=== PATIENT | female | born 1995 | race Two or more races ===

== ENCOUNTER 2017-10-07 05:00 | Observation (INO) | payer MEDICAID ==
[~2017-10-07] VITALS: Ht 170.2 cm; Wt 87.1 kg
[2017-10-07] MEDS ORDERED: LACTATED RINGER'S 1,000 ML IV ONE (06:00)
[2017-10-07] MEDS: LACTATED RINGER'S 1,000 ML IV SCH ×2 (06:42→12:06)
[2017-10-07 06:54] LABS: Basophils # (auto) 0 uL; Basophils % (auto) 0.4 % (0.0-2.0); Eosinophils # (auto) 0.2 uL; Eosinophils % (auto) 1.4 % (0.0-7.0); Hematocrit 43.9 % (36.0-46.0); Lymphocytes % (auto) 27.1 % (10.0-50.0); Mean Corpuscular Hemoglobin 33.4 pg (28.0-32.0); Monocytes # (auto) 0.6 uL; Monocytes % (auto) 5.3 % (0.0-12.0); Neutrophils # (auto) 7.2 uL; Neutrophils % (auto) 65.8 % (37.0-80.0); Nucleated Red Blood Cells % 0.1 %; Platelet Count (auto) 248 10^3/uL (140-450); Red Blood Cells 4.48 10^6/uL (4.0-5.20); Red Cell Distribution Width 14.1 % (11.8-14.3); White Blood Cell 10.9 10^3/uL (4.4-10.8)
[2017-10-07] MEDS ORDERED: D5W/LACTATED RINGERS 1,000 ML IV SCH (06:59)
[2017-10-07 07:00] LABS: Urine Bacteria NONE SEEN /hpf (None Seen); Urine Blood Negative /uL (Negative); Urine Specific Gravity 1.007 (1.001-1.035); Urine WBC 1 /hpf (0 - 5)
[2017-10-07] MEDS ORDERED: hydrALAZINE HCL 20 MG/ML VL IV PRN (07:00)
[2017-10-07] MEDS ORDERED: BETAMETHASONE ACET (6MG/ML) 5ML VIAL IM ONE (07:00)
[2017-10-07 07:09] LABS: INR 0.83 (0.9-1.15)
[2017-10-07 07:39] LABS: Albumin 2.8 g/dL (3.4-5.0); BUN/Creatinine Ratio 15.2; Bilirubin, Total 0.2 mg/dL (0.2-1.0); Calcium 8.3 mg/dL (8.5-10.1); Total Protein 7.3 g/dL (6.4-8.2); Uric Acid 5.4 mg/dL (2.6-6.0)
[2017-10-07] MEDS ORDERED: LABETALOL HCL 200 MG TAB PO SCH (08:45)
[2017-10-07] MEDS ORDERED: SODIUM CHLORIDE 0.9% 1,000 ML IV SCH (16:16)
[2017-10-07] MEDS ORDERED: MAGNESIUM SULFATE 40MG/ML 1,000 ML IV SCH (16:16)
[2017-10-07] MEDS ORDERED: MAGNESIUM SULFATE 100 ML IV SCH (16:30)
== END 2017-10-07 19:16 | disposition short-term general hospital (02) | DRG 566 ==
LOC: LDRP 05:00
PROVIDERS: ADMIT Obstetrics & Gynecology; ATTEND Obstetrics & Gynecology
DX: O36.8131 Decreased fetal movements, third trimester, fetus 1 (principal); O26.893 Other specified pregnancy related conditions, third trimester; M79.604 Pain in right leg; R10.30 Lower abdominal pain, unspecified; R51 Headache; R42 Dizziness and giddiness; M79.605 Pain in left leg; Z3A.30 30 weeks gestation of pregnancy
CPT/HCPCS: 36415; 59025; 76805; 76818; 80053; 81001; 81002; 83735; 84550; 85025; 85362; 85379; 85610; 85730; 94760; 96361; 96365; 96366; 96372; 96375; G0378; J0360; J0702; J3475; 96374

== ENCOUNTER 2019-03-03 12:47 | Emergency (ER) | payer MEDICAID ==
[~2019-03-03] VITALS: Ht 170.2 cm; Wt 80.7 kg
[2019-03-03 13:00] VITALS: BP 101/66
== END 2019-03-03 16:06 | disposition home or self-care (01) ==
LOC: ER 12:51
DX: S93.402A Sprain of unspecified ligament of left ankle, initial encounter (principal); X50.1XXA Overexertion from prolonged static or awkward postures, initial encounter; Y93.89 Activity, other specified; Y99.8 Other external cause status; Y92.89 Other specified places as the place of occurrence of the external cause
CPT/HCPCS: 73610

== ENCOUNTER 2025-01-27 08:02 | Emergency (ER) | payer MEDICAID ==
[~2025-01-27] VITALS: Ht 170.2 cm; Wt 80.1 kg
[2025-01-27] MEDS: SODIUM CHLORIDE 0.9% 1,000 ML IV ONE (09:10)
[2025-01-27] MEDS: METOCLOPRAMIDE HCL 5MG/ml INJ 2ml VIAL IV ONE (09:10)
[2025-01-27] MEDS: ACETAMINOPHEN 325 MG TAB PO ONE (09:10)
--- NOTE | 2025-01-27 09:19 | ED.PDOC ---
History of Present Illness HPI Comments 29-year-old female presents to the ER with the chief complaint of N/V. Reports that she has been having palpitations associated with headaches, chills, N/V, foul urine smell for the past two weeks but has been worsening throughout the past week. Patient is currently requesting for a CT scan of the head and assumes that she has fluid in the skull. Denies any trauma to the head. Denies any other symptoms at this time. Denies fever, /D, SOB, CP. No other associated symptoms, modifiers, recent injuries or sick contacts present at this time. Chief Complaint: Nausea/Vomiting Time Seen by MD: 09:10 Primary Care Provider: NONE Reviewed Notes: Nurses Notes, Medications, Allergies Allergies: Coded Allergies: Jed Flavor (Verified Allergy, Intermediate, hives, 10/07/17) Information Source: Patient Mode of Arrival: Ambulatory Severity: Moderate Timing: Weeks Duration: Since onset Prehospital treatment: None Past Medical History PAST MEDICAL HISTORY: Denies Surgical History: Denies all surgeries RAPID OUTSOLE STITCHER History: Denies all RAPID OUTSOLE STITCHER Hx Family History Family History: Reviewed,noncontributory to illness, Family hx of DM Social History Smoker: Non-Smoker Alcohol: Denies ETOH Use Drugs: Denies Drug Use Lives In: Home Constitutional: reports: chills; denies: diaphoresis, fatigue, fever, malaise, sweats, weakness, others EENTM: denies: blurred vision, double vision, ear bleeding, ear discharge, ear drainage, ear pain, ear ringing, eye pain, eye redness, hearing loss, mouth pain, mouth swelling, nasal discharge, nose bleeding, nose congestion, nose pain, photophobia, tearing, throat pain, throat swelling, voice changes, others Respiratory: denies: cough, hemoptysis, orthopnea, SOB at rest, shortness of breath, SOB with excertion, stridor, wheezing, others Cardiovascular: reports: palpitations; denies: chest pain, dizzy spells, diaphoresis, Dyspnea on exertion, edema, irregular heart beat, left arm pain, lightheadedness, PND, syncope, others Gastrointestinal: reports: nausea, vomiting; denies: abdomen distended, abdominal pain, blood streaked bowels, constipated, diarrhea, dysphagia, difficulty swallowing, hematemesis, melena, poor appetite, poor fluid intake, rectal bleeding, rectal pain, others Genitourinary: reports: others (Foul urine smell); denies: abnormal vagina bleeding, burning, dyspareunia, dysuria, flank pain, frequency, hematuria, incontinence, pain, , vagina discharge, urgency Neurological: reports: headache; denies: dizziness, fainting, left sided numbness, left sided weakness, numbness, paresthesia, pre-existing deficit, right sided numbness, right sided weakness, seizure, speech problems, tingling, tremors, weakness, others Musculoskeletal: denies: back pain, gout, joint pain, joint swelling, muscle pain, muscle stiffness, neck pain, others Integumetry: denies: bruises, change in color, change in hair/nails, dryness, laceration, lesions, lumps, rash, wounds, others Allergic/Immunocompromised: denies: Difficulty Healing, Frequent Infections, Hives, Itching, others Hematologic/Lymphatic: denies: anemia, blood clots, easy bleeding, easy bruising, swollen glands, others Endocrine: denies: excessive hunger, excessive sweating, excessive thirst, excessive urination, flushing, intolerance to cold, intolerance to heat, unexplained weight gain, unexplained weight loss, others Psychiatric: denies: anxiety, bipolar disorder, depression, hopeless, panic disorder, schizophrenia, sleepless, suicidal, others All Other Systems: Reviewed and Negative Physical Exam Exam Comments Appears uncomfortable General Appearance: No Apparent Distress, Normal HEENT: Normal ENT Inspection, Pharynx Normal, TMs Normal Neck: Full Range of Motion, Non-Tender, Normal, Normal Inspection Respiratory: Chest Non-Tender, Lungs Clear, No Accessory Muscle Use, No Respiratory Distress, Normal Breath Sounds Cardiovascular: No Edema, No JVD, No Murmur, No Gallop, Normal Peripheral Pulses, Regular Rate/Rhythm Breast Exam: Deferred Gastrointestinal: No Organomegaly, Non Tender, No Pulsatile Mass, Normal Bowel Sounds, Soft Genitalia: Deferred Pelvic: Deferred Rectal: Deferred Extremities: No calf tenderness, Normal capillary refill, Normal inspection, Normal range of motion, Non-tender, No pedal edema Musculoskeletal : Apperance: Normal Neurologic: Alert, wagon winder II-XII nml as Tested, No Motor Deficits, Normal Affect, Normal Mood, No Sensory Deficits Cerebellar Function: Normal Reflexes: Normal Skin: Dry, Normal Color, Warm Lymphatic: No Adenopathy Was a procedure done? Was a procedure done?: No Differential Dx Considerations may include: ACS, CVA, viral syndrome, electrolyte abnormality, infectious etiology X-Ray, Labs, Meds, VS Vital Signs Date Time Temp Pulse Resp B/P (MAP) Pulse Ox O2 Delivery O2 Flow Rate FiO2 01/27/25 11:04 98.4 83 16 124/98 (107) 100 98.4 01/27/25 08:35 98.0 96 18 121/86 (98) 100 98.0 01/27/25 08:10 97.8 94 16 142/91 97 97.8 Lab Test 01/27/25 09:33 01/27/25 08:58 Range/Units White Blood Count 9.0 4.4-10.8 10^3/uL Red Blood Count 4.85 4.0-5.20 10^6/uL Hemoglobin 11.9 L 12.2-16.2 g/dL Hematocrit 38.2 36.0-46.0 % Mean Corpuscular Volume 78.8 L 80.0-100.0 fL Mean Corpuscular Hemoglobin 24.6 L 28.0-32.0 pg Mean Corpuscular Hemoglobin Concent 31.3 L 32.0-36.0 g/dL Red Cell Distribution Width 15.2 H 11.8-14.3 % Platelet Count 369 140-450 10^3/uL Mean Platelet Volume 7.7 6.9-10.8 fL Neutrophils (%) (Auto) 84.1 H 37.0-80.0 % Lymphocytes (%) (Auto) 11.0 10.0-50.0 % Monocytes (%) (Auto) 3.9 0.0-12.0 % Eosinophils (%) (Auto) 0.7 0.0-7.0 % Basophils (%) (Auto) 0.3 0.0-2.0 % Neutrophils # (Auto) 7.6 1.6-8.6 10 ^3/uL Lymphocytes # (Auto) 1.0 0.4-5.4 10 ^3/uL Monocytes # (Auto) 0.4 0-1.3 10 ^3/uL Eosinophils # (Auto) 0.1 0-0.8 10 ^3/uL Basophils # (Auto) 0 0-0.2 10 ^3/uL Nucleated Red Blood Cells 0.1 % Sodium Level 142 136-145 mmol/L Potassium Level 3.7 3.5-5.1 mmol/L Chloride Level 105 98-107 mmol/L Carbon Dioxide Level 27 20-31 mmol/L Anion Gap 10 5-15 Blood Urea Nitrogen 6 L 9-23 mg/dL Creatinine 0.76 0.550-1.02 mg/dL Glomerular Filtration Rate Calc 109 >90 mL/min BUN/Creatinine Ratio 7.9 L 10.0-20.0 Serum Glucose 102 74-106 mg/dL Calcium Level 10.1 8.7-10.4 mg/dL Urine Color Colorless Yellow Urine Clarity Clear Clear Urine pH 6.0 5.0-9.0 Urine Specific [place] 1.008 1.001-1.035 Urine Protein Negative Negative Urine Ketones 1+ H Negative Urine Blood Negative Negative /uL Urine Nitrite Negative Negative Urine Bilirubin Negative Negative Urine Urobilinogen Normal Negative mg/dL Urine Leukocyte Esterase Negative Negative /uL Urine RBC 1 0 - 4 /hpf Urine Microscopic WBC 1 0-5 /HPF Urine Squamous Epithelial Cells Few <5 /hpf Urine Bacteria Few H None Seen /hpf Urine Yeast (Budding) Occasional None Seen /hpf Urine Glucose Normal Normal mg/dL Time of 1ST Reevaluation: 09:40 Reevaluation 1ST: Unchanged Patient Education/Counseling: Diagnosis, Treatment, Prognosis Family Education/Counseling: No Family Present SEPSIS Sepsis Screen Date sepsis recognized/suspect: Jan 27, 2025 Time Sepsis recognized/suspect: 08 Recent Procedure: No On Antibiotic Therapy: No Respiratory Rate >20: No Heart Rate >90: No Temp<36 C (96.8 F) or >38.3 C: No SBP <90 or MAP <65 mmHG: No New Acute Mental Status Change: No Is the patient on CPAP, BIPAP,: No Physician Orders Head Without Contrast (01/27/25 10:55) Vital Signs Date Time Temp Pulse Resp B/P (MAP) Pulse Ox O2 Delivery O2 Flow Rate FiO2 01/27/25 11:04 98.4 83 16 124/98 (107) 100 98.4 01/27/25 08:35 98.0 96 18 121/86 (98) 100 98.0 01/27/25 08:10 97.8 94 16 142/91 97 97.8 Laboratory Tests Test 01/27/25 09:33 White Blood Count 9.0 10^3/uL (4.4-10.8) Departure 1 Departure Time of Disposition: 12:33 (Patient's workup is benign. Patient likely with a migraine. We will discharge patient home with outpatient follow up) Impression: Primary Impression: Migraine Disposition: 01 HOME / SELF CARE / HOMELESS Condition: Stable Additional Instructions: Your CT scan was normal your labs were normal. You did not have any lab abnormalities that would suggest diabetes. You likely had a migraine. You received medications in the ER. You can take tylenol and motrin as needed for pain. You should stay well rested and well hydrated. It is important to follow up with your regular doctor within one week. If your symptoms worsen or you have any other concerns then please return to the ER. Discharged With: Self Critical Care Note Critical Care Time?: No Stability Stability form required: No I personally scribed for CIELO PATHAK MD ([email or web address]) on 01/27/25 at 09:19. Electronically submitted by González Russo ([email or web address]). CIELO PATHAK MD Jan 27, 2025 09:19
[2025-01-27 09:28] LABS: Urine Budding Yeast OCCASIONAL /hpf (None Seen); Urine Protein, UAD Negative (Negative)
[2025-01-27 09:44] LABS: Hematocrit 38.2 % (36.0-46.0); Hemoglobin 11.9 g/dL (12.2-16.2); Mean Corpuscular Hemoglobin 24.6 pg (28.0-32.0); Mean Corpuscular Volume 78.8 fL (80.0-100.0); Nucleated Red Blood Cells % 0.1 %
[2025-01-27 09:49] LABS: Chloride 105 mmol/L (98-107); Potassium 3.7 mmol/L (3.5-5.1); Sodium 142 mmol/L (136-145)
[2025-01-27 09:50] LABS: Anion Gap 10 (5-15); Carbon Dioxide 27 mmol/L (20-31)
[2025-01-27 09:51] LABS: Calcium 10.1 mg/dL (8.7-10.4)
[2025-01-27 09:55] LABS: Glucose 102 mg/dL (74-106)
[2025-01-27 09:56] LABS: BUN/Creatinine Ratio 7.9 (10.0-20.0)
[2025-01-27 09:58] LABS: Blood Urea Nitrogen 6 mg/dL (9-23)
[2025-01-27 11:04] VITALS: TEMP 98.4
--- NOTE | 2025-01-27 11:33 | DVH ---
CT HEAD WITHOUT CONTRAST INDICATION: intractable migraine COMPARISON: None TECHNIQUE: CT of the head without intravenous contrast. RADIATION DOSE: CTDIvol: 62.74 mGy, DLP: 1110.71 mGy*cm FINDINGS: There is no evidence of acute intracranial hemorrhage, extra-axial collection, mass effect, midline shift, herniation or hydrocephalus. The ventricles, sulci and cisterns are age appropriate. The cason-white differentiation is intact. The visualized paranasal sinuses and mastoid air cells are clear. The surrounding soft tissues and osseous structures are unremarkable. IMPRESSION: 1. No evidence of acute intracranial hemorrhage, mass effect or hydrocephalus.
[2025-01-27 12:55] VITALS: BP 116/75; PULSE 87; RESP 16; O2SAT 100
== END 2025-01-27 12:58 | disposition home or self-care (01) ==
LOC: ER 08:02
DX: G43.919 Migraine, unspecified, intractable, without status migrainosus (principal); Z79.899 Other long term (current) drug therapy
CPT/HCPCS: 36415; 70450; 80048; 81001; 85025